=== PATIENT | male | born 1985 | race Two or more races ===

== ENCOUNTER 2024-11-02 10:41 | Emergency (ER) | payer BC, OTHER ==
[~2024-11-02] VITALS: Ht 177.8 cm; Wt 110.0 kg
[2024-11-02 11:11] VITALS: BP 131/90; PULSE 78; RESP 17; TEMP 98; O2SAT 95
[2024-11-02] MEDS: LIDOCAINE 1% HCL (LOCAL ANESTH.) INJ 20ML MDV ID ONE (11:49)
[2024-11-02] MEDS: cefTRIAXone SOD 1,000 MG VL IM ONE (11:49)
[2024-11-02] MEDS ORDERED: BACDST PO (12:16)
[2024-11-02] MEDS ORDERED: ACET500T58 PO (12:16)
--- NOTE | 2024-11-02 12:16 | ED.PDOC ---
Musculoskeletal HPI Comments 39-year-old male presents with symptoms consistent with paronychia temporal right long finger. Onto started three days ago. Denies fevers chills nausea vomiting diarrhea Chief Complaint: Upper Extremity Time Seen by MD: 11:11 Primary Care Provider: none Reviewed Notes: Nurses Notes, Medications, Allergies Allergies: Coded Allergies: NO KNOWN ALLERGIES (Unverified , 11/02/24) Home Meds Active Scripts Acetaminophen (Acetaminophen) 500 Mg Tab, 500 MG PO Q6HP PRN for 10 Days, #40 TAB 0 Refills Prov:RUSSEL ONEILL [employer] SERVICE SUPERVISOR 11/02/24 Sulfamethoxazole W/Trimethopri (Bactrim Ds Tablet) 1 Tab Tb, 1 TAB PO BID for 7 Days, #14 TAB 0 Refills Prov:RUSSEL ONEILL [employer] SERVICE SUPERVISOR 11/02/24 Information Source: Patient Mode of Arrival: Ambulatory Family History Family History: Reviewed,noncontributory to illness All Other Systems: Reviewed and Negative (per hpi) Physical Exam General Appearance: No Apparent Distress, Normal HEENT: Normal ENT Inspection, Pharynx Normal, TMs Normal Neck: Full Range of Motion, Non-Tender, Normal, Normal Inspection Respiratory: Chest Non-Tender, Lungs Clear, No Accessory Muscle Use, No Respiratory Distress, Normal Breath Sounds Cardiovascular: No Edema, No JVD, No Murmur, No Gallop, Normal Peripheral Pulses, Regular Rate/Rhythm Breast Exam: Deferred Gastrointestinal: No Organomegaly, Non Tender, No Pulsatile Mass, Normal Bowel Sounds, Soft Genitalia: Deferred Pelvic: Deferred Rectal: Deferred Extremities: No calf tenderness, Normal capillary refill, Normal inspection, Normal range of motion, Non-tender, No pedal edema Musculoskeletal : Apperance: Normal Neurologic: Alert, 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 Was a procedure done?: Yes Sedation Sedation?: No Incision and Drainage Incision and Drainage: Abscess Location right finger Anesthetic: Lidocaine Preparation: Betadine, Saline Incision and Wound: Pus Informed consent obtained: Yes Risks/benefits/alt described: Yes Differential Diagnosis EXT Differential Diagnosis: Other X-Ray, Labs, Meds, VS Vital Signs Date Time Temp Pulse Resp B/P (MAP) Pulse Ox O2 Delivery O2 Flow Rate FiO2 11/02/24 11:11 98.0 78 17 131/90 (104) 95 98.0 11/02/24 11:11 78 17 95 Room Air 11/02/24 11:07 98.0 78 17 131/60 (83) 95 X-Ray, Labs, Meds, VS Comment Exam findings consistent with paronychia Prescription for topical antibiotic Advised on good hand hygiene Wash hands and feet with soap and dry well Apply warm compresses twice daily as necessary Avoid chewing or trimming cuticles/nails too close to the skin Avoid pulling hang nail ER precautions given if worsening symptoms such as swelling pain discharge or redness spreads Time of 1ST Reevaluation: 12:00 Reevaluation 1ST: Improved Patient Education/Counseling: Diagnosis, Treatment Family Education/Counseling: Diagnosis, Treatment Departure 1 Departure Time of Disposition: 12:15 Impression: Primary Impression: Paronychia Disposition: HOME / SELF CARE / HOMELESS Condition: Stable Additional Instructions: Discharge Note: Drink plenty of fluids. Follow up with your primary Dr. If your condition becomes worse call and follow up with your primary Dr. for instructions or return to the ER if needed. Thank you for visiting [facility]. e-Prescriptions Acetaminophen (Acetaminophen) 500 Mg Tab 500 MG PO Q6HP PRN for 10 Days, #40 TAB 0 Refills Prov: RUSSEL ONEILL NP 11/02/24 Sulfamethoxazole W/Trimethopri (Bactrim Ds Tablet) 1 Tab Tb 1 TAB PO BID for 7 Days, #14 TAB 0 Refills Prov: RUSSEL ONEILL NP 11/02/24 Discharged With: Self Critical Care Note Critical Care Time?: No Stability Stability form required: No Heart Score Heart Score: Heart Score Response (Comments) Value History N/A 0 EKG N/A 0 Age N/A 0 Risk Factors N/A 0 Troponin N/A 0 Total 0 RUSSEL ONEILL NP Nov 02, 2024 12:16
== END 2024-11-02 12:19 | disposition home or self-care (01) ==
LOC: ER 10:44
DX: L03.011 Cellulitis of right finger (principal); Z79.899 Other long term (current) drug therapy
CPT/HCPCS: 10060; 96372; 99283; J0696; J2003